=== PATIENT | female | born 2005 | race African-American/Black ===

== ENCOUNTER 2025-10-13 18:02 | Emergency (ER) | payer MEDICAID ==
[~2025-10-13] VITALS: Ht 157.5 cm; Wt 71.0 kg
[~2025-10-13 18:02] MED LIST: FOLI0.4T6 PO
[2025-10-13 18:07] VITALS: O2SAT 98
[2025-10-13 18:39] LABS: CLARITY URINE CLEAR (CLEAR); COLOR URINE YELLOW (YELLOW); GLUCOSE URINE NEGATIVE (NEGATIVE); KETONES URINE NEGATIVE (NEGATIVE); LEUKOCYTE ESTERASE URINE NEGATIVE (NEGATIVE); NITRITE URINE NEGATIVE (NEGATIVE); OCCULT BLOOD URINE NEGATIVE (NEGATIVE); PH URINE 6.0 (4.5-8.0); PROTEIN URINE NEGATIVE (NEGATIVE); SPECIFIC GRAVITY URINE 1.015 (1.005-1.030); UROBILINOGEN URINE 0.2 E.U./dL (0.2-1.0)
[2025-10-13 19:11] LABS: BASOPHILS % 1.0 % (0.0-2.0); EOSINOPHILS % 1.2 % (0.0-5.0); HEMATOCRIT. 31.8 % (36.0-48.0); HEMOGLOBIN. 9.6 g/dL (12.0-16.0); LYMPHOCYTES % 23.5 % (20.0-50.0); MEAN PLATELET VOLUME 8.7 fl (7.4-10.4); MONOCYTES % 7.2 % (2.0-8.0); NEUTROPHILS % 67.1 % (40.0-76.0); PLATELET 346 x1000/uL (130-400); RED BLOOD CELL COUNT 4.33 mill/uL (4.2-5.4); RED CELL DISTRIBUTION WIDTH 15.3 % (11.6-14.6)
[2025-10-13 19:26] LABS: CREATININE 0.8 mg/dL (0.6-1.0); PROTEIN TOTAL 7.3 g/dL (6.0-8.3); UREA NITROGEN BLOOD < 5 mg/dL (9-23)
[2025-10-13 19:28] LABS: ASPARTATE AMINOTRANSFERASE 48 IU/L (<34); BILIRUBIN DIRECT 0.2 mg/dL (<=3.0); BILIRUBIN TOTAL 0.6 mg/dL (0.1-1.0)
[2025-10-13] MEDS: ONDANSETRON 4MG ODT PO ONE (19:30)
[2025-10-13] MEDS: ACETAMINOPHEN 325MG TABLET PO ONE (19:30)
[2025-10-13] MEDS: FAMOTIDINE 20MG TABLET PO SCH (19:30)
[2025-10-13 19:44] LABS: HCG SCREEN NEGATIVE
[2025-10-13] MEDS ORDERED: MAG-55 MT (20:25)
[2025-10-13] MEDS ORDERED: ONDA4TAB50 MT (20:25)
[2025-10-13] MEDS ORDERED: FAMO-135 MT (20:25)
[2025-10-13 20:39] LABS: *AMPHETAMINES SCREEN URINE NEGATIVE (NEGATIVE); *BARBITURATES SCREEN URINE NEGATIVE (NEGATIVE); *BENZODIAZEPINES SCREEN URINE NEGATIVE (NEGATIVE); *COCAINE SCREEN URINE NEGATIVE (NEGATIVE); CANNABINOID URINE SCREEN NEGATIVE (NEGATIVE); ECSTASY MDMA SCREEN URINE NEGATIVE (NEGATIVE); METHADONE URINE SCREEN NEGATIVE (NEGATIVE); OPIATES URINE SCREEN NEGATIVE (NEGATIVE); PHENCYCLIDINE URINE SCREEN NEGATIVE (NEGATIVE)
[2025-10-13 20:42] VITALS: BP 116/67; PULSE 74; RESP 16; TEMP 37.1; O2SAT 98
[2025-10-13] MEDS ORDERED: FERR1TAB91 MT (21:30)
== END 2025-10-13 20:44 | disposition home or self-care (01) ==
LOC: ER 18:02
DX: K29.70 Gastritis, unspecified, without bleeding (principal); R10.20 Pelvic and perineal pain unspecified side; Z79.899 Other long term (current) drug therapy; F10.90 Alcohol use, unspecified, uncomplicated; F12.90 Cannabis use, unspecified, uncomplicated; Y90.9 Presence of alcohol in blood, level not specified
CPT/HCPCS: 99284; 76856; 76830; 80076; 80305; 80048; 81003; 81025; 84703; 83690; 85025; 36415; 76857; G0480; Q0162; 80320